=== PATIENT | female | born 1995 | race Caucasian/White ===

== ENCOUNTER 2016-10-31 11:09 | Day surgery (SDC) | payer BC ==
[2016-10-31] MEDS ORDERED: Sodium Chloride 0.9% 5 ML Syringe FLUSH PRN (11:15)
[2016-10-31] MEDS: Lactated Ringers 1,000 ML IV SCH (11:30)
[2016-10-31] MEDS ORDERED: Propofol 200 MG/20 ML SDV ONE ×2 (12:17→12:37)
[2016-10-31] MEDS ORDERED: Midazolam 1 MG/ML 2 ML SDV ONE (12:17)
[2016-10-31] MEDS ORDERED: fentaNYL 100 MCG/2 ML SDV ONE (12:17)
--- NOTE | 2016-10-31 12:20 | PCM.PN ---
- General Info Date of Service: 10/31/16 - Review of Systems Systems Review Comment:: 21-year-old female referred for colonoscopy. She has had a change in bowel habits with alternating diarrhea and constipation. She denies any rectal bleeding but does have quite a bit of crampy abdominal pain with loose stools. Symptoms have been going on for several months and have not responded to medications. She is medically stable to proceed today with no significant change in her health status since her recent history and physical. I discussed the proposed colonoscopy with the patient. Risks such as but not limited to bleeding and GI injury or reviewed. She appears to understand and agrees to proceed. - Patient Data Vitals - most recent: Last Vital Signs Temp 98.4 F 10/31/16 11:17 Pulse 107 H 10/31/16 11:17 Resp 18 10/31/16 11:17 BP 141/95 H 10/31/16 11:17 Pulse Ox 96 10/31/16 11:17 Weight - most recent: 88.904 kg Lab Results last 24 hrs: Laboratory Results - last 24 hr 10/31/16 Range/Units 11:15 Urine HCG, Qual Negative (NEGATIVE) Med Orders - Current: Current Medications Lactated Ringer's (Ringers, Lactated) 1,000 mls @ 50 mls/hr IV ASDIRECTED AIDA Last Admin: 10/31/16 11:30 Dose: 50 mls/hr Sodium Chloride (Syrex Flush) 5 ml FLUSH Q8HR PRN PRN Reason: Keep Vein Open - Problem List Review Problem List Initiated/Reviewed/Updated: Yes - My Orders Last 24 Hours: My Active Orders 10/30/16 12:39 Resuscitation Status Routine 10/30/16 Dinner Nothing Per Oral Diet [DIET] 10/31/16 11:15 Patient to Empty Bladder [RC] ASDIRECTED Peripheral IV Care [RC] . DIRECTED Verify Patient Consent Obtain [RC] ASDIRECTED Lactated Ringers [Ringers, Lactated] 1,000 ml IV ASDIRECTED Sodium Chloride 0.9% [Syrex Flush] 5 ml FLUSH Q8HR PRN Peripheral IV Insertion Adult [OM.PC] Routine - Assessment Assessment:: change in bowel habits - Plan Plan:: colonoscopy
[2016-10-31] MEDS: fentaNYL 100 MCG/2 ML SDV ONE (13:07)
[2016-10-31] MEDS: Midazolam 1 MG/ML 2 ML SDV ONE (13:08)
[2016-10-31] MEDS: Propofol 200 MG/20 ML SDV ONE (13:08)
--- NOTE | 2016-10-31 13:11 | PCM.OPNOTE ---
- General Post-Op/Procedure Note Date of Surgery/Procedure: 10/31/16 Operative Procedure(s): Colonoscopy with biopsy Findings: Normal-appearing colon and terminal ileum Pre Op Diagnosis: Change in bowel habits Post-Op Diagnosis: Normal colon Anesthesia Technique: MAC Primary Surgeon: Aman Baptiste Pathology: biopsies of the terminal ileum and colon Output, Urine Amount: 0 EBL in mLs: 3 Complications: None Condition: Good
[2016-10-31 13:57] VITALS: BP 135/88
--- NOTE | 2016-10-31 22:26 | OR ---
DATE OF SURGERY: 10/31/2016 SURGEON: Aman Baptiste MD PREOPERATIVE DIAGNOSIS: Change in bowel habits. POSTOPERATIVE DIAGNOSIS: Normal colon. OPERATION PERFORMED: Colonoscopy with biopsy. INDICATIONS FOR SURGERY: This is a 21-year-old female, who has been having symptoms of alternating constipation and diarrhea as well as abdominal pain. She is referred for diagnostic colonoscopy. FINDINGS: The patient's colon and terminal ileum appeared normal. The mucosa appeared healthy. There was no visible signs of inflammation or other mucosal or intrinsic or visible extrinsic abnormalities. PROCEDURE: The patient was taken to the operating room. She was given intravenous sedation and with her in the left lateral decubitus position, digital rectal exam was performed showing no rectal masses. The Olympus colonoscope was inserted into the rectum, retroflexed examination of the rectal canal was performed. The scope was then carefully advanced under direct visualization through the entire length of the colon until the cecum was reached. Cecal acquisition is confirmed by noting normal internal cecal anatomy including the appendiceal orifice and ileocecal valve. The ileocecal valve was cannulated and the terminal ileum was examined. This appeared normal without visible signs of inflammation. Biopsies of the mucosa of the terminal ileum were taken. The scope was then withdrawn back up into the colon. Slowly the scope was withdrawn, sequentially re-examining colonic segments. As the scope was withdrawn, random biopsies were taken throughout the length of the colon because of her history of symptoms. With no sign of any complicating process, and after the colon, rectum, terminal ileum had been completely examined, the scope was removed and the patient was taken from the operating room in satisfactory condition. ESTIMATED BLOOD LOSS: 3 mL. COMPLICATIONS: None. PROGNOSIS: Good. /[id number]/MODL
== END 2016-10-31 14:00 | disposition home or self-care (01) ==
LOC: KA.SDS 11:09
PROVIDERS: ATTEND Surgery
DX: R19.4 Change in bowel habit (principal); K59.00 Constipation, unspecified; R19.7 Diarrhea, unspecified; A74.9 Chlamydial infection, unspecified; Z72.51 High risk heterosexual behavior; Z90.49 Acquired absence of other specified parts of digestive tract; Z98.890 Other specified postprocedural states; Z79.899 Other long term (current) drug therapy
CPT/HCPCS: 45380; 81025; J2250; J2704; J3010; J7120

== ENCOUNTER → 2016-11-06 | Outpatient (CLI) | payer BC | LOC: KA.US 09:21 | PROVIDERS: ATTEND Internal Medicine | DX: R10.2 Pelvic and perineal pain (principal) | CPT/HCPCS: 76830 ==